=== PATIENT | male | born 1960 | race Caucasian/White ===

== ENCOUNTER → 2022-03-23 13:57 | Outpatient (BNVA) | payer MEDICARE, OTHER, SELFPAY | PROVIDERS: Visit Provider Internal Medicine | DX: I71.9 Aortic aneurysm of unspecified site, without rupture (principal); I10 Essential (primary) hypertension; R93.1 Abnormal findings on diagnostic imaging of heart and coronary circulation; Z87.891 Personal history of nicotine dependence | CPT/HCPCS: 99204 ==

== ENCOUNTER → 2022-05-07 08:31 | Outpatient (BNVA) | payer MEDICARE, SELFPAY | PROVIDERS: PCP Nurse Practitioner Family; Visit Provider Urology | DX: R79.89 Other specified abnormal findings of blood chemistry (principal); N52.9 Male erectile dysfunction, unspecified; I10 Essential (primary) hypertension | CPT/HCPCS: 81003; 99203 ==

== ENCOUNTER → 2022-09-21 13:07 | Outpatient (BNVA) | payer MEDICARE, SELFPAY | PROVIDERS: PCP Nurse Practitioner Family; Visit Provider Internal Medicine | DX: I71.9 Aortic aneurysm of unspecified site, without rupture (principal); I10 Essential (primary) hypertension; R93.1 Abnormal findings on diagnostic imaging of heart and coronary circulation; R06.00 Dyspnea, unspecified; Z87.891 Personal history of nicotine dependence | CPT/HCPCS: 99214 ==

== ENCOUNTER → 2022-10-07 10:43 | Outpatient (BNVA) | payer MEDICARE, SELFPAY | PROVIDERS: PCP Nurse Practitioner Family; Visit Provider Internal Medicine | DX: I10 Essential (primary) hypertension (principal) | CPT/HCPCS: 83880 ==

== ENCOUNTER → 2022-10-12 15:04 | Outpatient (BNVA) | payer MEDICARE, SELFPAY | PROVIDERS: PCP Family Medicine; Visit Provider Nurse Practitioner Family | DX: I10 Essential (primary) hypertension (principal); I87.2 Venous insufficiency (chronic) (peripheral); Z87.891 Personal history of nicotine dependence | CPT/HCPCS: 99214 ==

== ENCOUNTER 2022-10-15 10:25 | Outpatient (CLI) | payer MEDICARE, SELFPAY ==
--- NOTE | 2022-10-15 11:00 | CT_ITS ---
WS: [id number] CTA THORACIC TECHNIQUE: Contrast enhanced CTA of the thoracic aorta with coronal and sagittal reformatted images a nd maximum intensity projection (MIP) images. CLINICAL INFORMATION: ascending aortic aneurysm COMPARISON: None. DLP: 960.[address] scans at [facility] use at least one of these dose optimization techniques: automated e xposure control; mA and/or kV adjustment per patient size (includes targeted exams where dose is matc hed to clinical indication); or iterative reconstruction. FINDINGS: Lungs are well aerated. No acute pulmonary infiltrates. No focal pneumonia or pleural fluid. Noncalci fied hazy opacity RIGHT upper lobe measuring 9 mm. Noncalcified hazy opacity in the LEFT upper lobe m easuring 6 mm. Some images are degraded due to LEFT TSA. No mediastinal or hilar lymphadenopathy. Asc ending thoracic aorta measures 4.1 cm in maximum dimension. Normal caliber aortic arch and descending thoracic aorta. Adrenal glands are normal. Small esophageal hiatal hernia. Celiac and SMA are patent. Proximal main p ulmonary arteries are normal. Hypertrophic changes thoracic spine. CT/CT angio chest [id number] IMPRESSION: 1. Ascending thoracic aorta measures 4.1 cm. Normal caliber descending thoraci c aorta. 2. Lungs are well aerated. 3. Hazy opacity RIGHT upper lobe measuring 9 mm and LEFT inferior upper lobe a nteriorly measuring 6 mm. Recommend 12 month follow-up. 4. No other suspicious findings.
[2022-10-15] MEDS: iohexol 350 mg/mL 500 mL Btl (per mL) IV (11:28)
--- NOTE | 2022-10-15 13:15 | USCV_ITS ---
CHE DAVID Age: 61 Gender: M : 1960 Exam Date: 10/15/2022 12:08 Ordering Phys: Ventura Salazar M.D ([email or web address]) Technologist: Bashir [place] [facility] [place]: SOB BP: 142 / 90 HR: 66 Rhythm: Sinus Technical Quality: Adequate MEASUREMENTS (Male / Female) Normal Values 2D ECHO LVOT Diameter 2.0 cm LV Ejection Fraction MOD 2C 67.7 % LV Ejection Fraction 2C AL 66.0 % LA Diameter 3.2 cm LA Width 3.8 cm LA Height 4.5 cm RA Width 3.0 cm RA Height 4.8 cm Aorta at Sinotubular Diameter 3.1 cm IVC Diameter 1.8 cm M-MODE Aortic Annulus Diameter 3.4 cm LA Ao Ratio MM 0.9 DOPPLER AV Peak Velocity 149.3 cm/s LVOT Peak Velocity 141.0 cm/s AV Area Cont Eq vti 2.9 cm squared AV Area Cont Eq pk 3.0 cm squared MV Peak Velocity 75.0 cm/s MV Area PHT 4.9 cm squared Mitral E to A Ratio 0.8 MV E' Velocity 27.5 cm/s Mitral E to MV E' Ratio 7.5 Mitral E to LV E' Lateral Ratio 7.8 Mitral E to LV E' Septal Ratio 7.1 TR Peak Velocity 297.5 cm/s TR Peak Gradient 35.4 mmHg TR Mean Velocity 229.1 cm/s TR Mean Gradient 22.4 mmHg TR Velocity Time Integral 81.5 cm Right Atrial Pressure 3.0 mmHg Pulmonary Artery Systolic Pressu 38.4 mmHg PV Peak Velocity 91.3 cm/s RV Acceleration Time 0.1 s RV Ejection Time 0.3 s RV AcT/ET 0.4 FINDINGS Left Ventricle Left ventricle is normal in size. LV systolic function is normal with EF of 60 to 65%. No regional wall motion abnormalities are seen. Grade 1 diastolic dysfunction Right Ventricle Normal in size and function Right Atrium Normal in size Left Atrium Normal in size Mitral Valve Structurally normal mitral valve. Mild mitral regurgitation. Aortic Valve Structurally normal aortic valve. No significant stenosis. Trace aortic regurgitation. Tricuspid Valve Mild tricuspid regurgitation. RVSP is 35-40mmHg. This is consistent with mild pulmonary hypertension Pulmonic Valve Not well visualized. Trace pulmonic regurgitation. Pericardium Normal Aorta Normal in size IVC Appears to be normal CONCLUSIONS LV systolic function is normal with EF of 60-65% Grade 1 diastolic dysfunction Mild mitral regurgitation Trace aortic regurgitation Mild tricuspid regurgitation Mild pulmonary hypertension Trace pulmonic regurgitation No comparison studies are available Ventura Salazar MD (Electronically Signed) Final Date: 29 Oct 2022 10:24 S
== END 2022-10-15 10:26 | disposition home or self-care (01) ==
LOC: RAD 10:39
PROVIDERS: PCP Family Medicine; Visit Provider Internal Medicine
DX: I71.9 Aortic aneurysm of unspecified site, without rupture (principal); R06.02 Shortness of breath
CPT/HCPCS: 71275; 93306; Q9967

== ENCOUNTER 2022-10-16 11:24 | Outpatient (CLI) | payer MEDICARE, SELFPAY ==
--- NOTE | 2022-10-16 12:00 | USCV_ITS ---
TIFFANIEDAVID LEVINE Age: 61 Gender: M : 1960 Exam Date: 10/16/2022 11:53 Ordering Phys: Natividad Camacho Technologist: LILIA Exam Location: [facility] [place] Indication: HISTORY: PROCEDURES: Bilateral duplex Venous Insufficiency study of the Deep and Superficial systems was carried out according to normal protocol with the patient in supine positon for deep system and dependent position for the superficial system. FINDINGS: All deep veins demonstrated compressibility without evidence of intraluminal thrombus or increased echogenicity. Spectral analysis of Doppler signals demonstrates normal response to compression maneuvers indicating patency without obstruction. Vein measurements and reflux times are listed below were applicable. Significant Reflux at GSV Dist to SFJ, GSV MID, SSV Prox, SSV Mid CONCLUSIONS No evidence of DVT in the above-mentioned identifiable veins. Minimal venous reflux were noted of greater than 500 ms on the right side just distal to the saphenofemoral junction, proximal and mid small saphenous vein segments. The small saphenous vein segments wre found to be very superficial and lss than 1 cm from the surface. Just distal to the saphenofemoral junction, the venous segment was measuring 0.74 cm in diameter, at a depth of 1.21 cm from the surface. No similar previous studies are available for comparison Dr Jim Arana MD [facility] (Electronically Signed) Final Date: 17 October 2022 16:11 S
== END 2022-10-16 11:25 | disposition home or self-care (01) ==
LOC: RAD 11:32
PROVIDERS: PCP Family Medicine; Visit Provider Nurse Practitioner Family
DX: I87.2 Venous insufficiency (chronic) (peripheral) (principal)
CPT/HCPCS: 93970; 99214

== ENCOUNTER 2022-11-11 07:35 | Outpatient (CLI) | payer MEDICARE, SELFPAY ==
[2022-11-11 07:40] VITALS: BMI 40.9
--- NOTE | 2022-11-11 07:45 | NMCV_ITS ---
NM everardo perf SPECT r/s* [id number] Willie Blum Age: 61 Gender: M : 1960 Exam Date: 11/11/2022 08:39 Ordering Phys: Ventura Salazar M.D Technologist: KEVIN Manjarrez Exam Location: [facility] Indications: CHEST PAIN STRESS TEST Please see separate stress test report in [facility] for full findings IMAGE PROTOCOL Rest/Stress 1 Exercise Day Radiopharmaceutical Dose (mCi) Administration Site Administered by Rest: Tc-99m 10.6 IV KEVIN Reyes Sestamidante Stress:Tc-99m 33.0 IV KEVIN Reyes Sestamidante Rest: 11-Nov-2022 60 Discovery 630 Stress: 11-Nov-2022 15 Discovery 630 Radiopharmaceutical was injected at 85 % maximum heart rate. Images obtained in supine and prone position. SPECT RESULTS Technical Quality: Excellent Raw Data Analysis: Normal Image Corrections: No attenuation or motion correction applied Summed Stress Score: 1 Summed Rest Score: 5 Summed Difference Score: 1 PERFUSION FINDINGS SPECT images demonstrate homogeneous tracer distribution throughout the myocardium. FUNCTIONAL RESULTS (calculated via Gated SPECT) Stress Image LV EF (%): 70 Stress EDV (mL):118 TID: 0.87 Stress ESV (mL):35 FUNCTIONAL FINDINGS: There is normal left ventricular systolic function. IMPRESSIONS 1. Normal myocardial perfusion imaging with no evidence of ischemia. 2. LV systolic function is normal. Ventura Salazar MD (Electronically Signed) Final Date: 11 Nov 2022 17:52 S
--- NOTE | 2022-11-11 07:45 | ECG_ITS ---
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 Interpretive Statements NAME OF STUDY: EXERCISE SESTAMIBI STRESS TEST INDICATION: [Chest Pain] EXERCISE DATA: The patient was exercised by Severo protocol. Baseline heart rate was 72 beats per minute. Baseline blood pressure was 127/95 millimeters of mercury. Target heart rate was 136 beats per minute. Maximum heart rate achieved was 142 which was 104% of the target heart rate. Maximum blood pressure was 179/94 millimeters of mercury. Total exercise time was 9 minutes. Maximum METs achieved was 10.2 METS. The reason for ending the test was completion of protocol. The patient complained of shortness of breath during the stress test, which then resolved at the end of the test. ELECTROCARDIOGRAM: BASELINE: Showed sinus rhythm, normal axis, no significant ST-T changes at the baseline noted. [] EXERCISE: At the peak exercise level, [] No significant ST-T changes suggestive of ischemia noted. [] RECOVERY: During the recovery period, heart rate dropped appropriately. No significant ST-T changes in the recovery suggestive of ischemia noted. [] CONCLUSION: 1. Exercise capacity good 2. Heart rate response was appropriate. 3. Blood pressure response was appropriate. 4. Symptoms not suggestive of ischemia. 5. Electrocardiogram portion of the stress test was not suggestive of ischemia. 6. Nuclear scan will be documented separately. Electronically Signed On 12-03-2022 9:36:13 CDT by Ventura Salazar M.D. [email or web address]
[2022-11-11 10:01] VITALS: BP 143/99; PULSE 99
== END 2022-11-11 07:36 | disposition home or self-care (01) ==
PROVIDERS: PCP Family Medicine; Visit Provider Internal Medicine
DX: R07.9 Chest pain, unspecified (principal)
CPT/HCPCS: 36415; 78452; 93017; A9500

== ENCOUNTER → 2023-03-23 12:45 | Outpatient (BNVA) | payer MEDICARE, SELFPAY | PROVIDERS: PCP Family Medicine; Visit Provider Internal Medicine | DX: I10 Essential (primary) hypertension (principal); I71.9 Aortic aneurysm of unspecified site, without rupture; R93.1 Abnormal findings on diagnostic imaging of heart and coronary circulation; R06.09 Other forms of dyspnea; Z87.891 Personal history of nicotine dependence | CPT/HCPCS: 99214 ==

== ENCOUNTER → 2023-04-15 13:44 | Outpatient (BNVA) | payer MEDICARE, SELFPAY | PROVIDERS: PCP Family Medicine; Visit Provider Nurse Practitioner Family | DX: L82.1 Other seborrheic keratosis (principal); D22.5 Melanocytic nevi of trunk; L57.8 Other skin changes due to chronic exposure to nonionizing radiation; L81.4 Other melanin hyperpigmentation; L57.0 Actinic keratosis | CPT/HCPCS: 17000; 99203 ==

== ENCOUNTER → 2024-03-31 09:48 | Outpatient (BNVA) | payer MEDICARE, SELFPAY | PROVIDERS: PCP Family Medicine; Visit Provider Nurse Practitioner Family | DX: D48.5 Neoplasm of uncertain behavior of skin (principal); L82.1 Other seborrheic keratosis; D22.5 Melanocytic nevi of trunk; L81.4 Other melanin hyperpigmentation; L57.0 Actinic keratosis; L82.0 Inflamed seborrheic keratosis; L91.8 Other hypertrophic disorders of the skin; Z85.828 Personal history of other malignant neoplasm of skin | CPT/HCPCS: 11102; 17000; 17110; 99213 ==

== ENCOUNTER → 2024-05-22 13:00 | Outpatient (BNVA) | payer MEDICARE, SELFPAY | PROVIDERS: PCP Family Medicine; Visit Provider Dermatology | DX: Q82.5 Congenital non-neoplastic nevus (principal); D23.39 Other benign neoplasm of skin of other parts of face; L82.1 Other seborrheic keratosis; Z08 Encounter for follow-up examination after completed treatment for malignant neoplasm; Z85.820 Personal history of malignant melanoma of skin; D03.62 Melanoma in situ of left upper limb, including shoulder; D48.5 Neoplasm of uncertain behavior of skin | CPT/HCPCS: 11102; 11604; 12034; 99213 ==

== ENCOUNTER → 2024-06-05 10:59 | Outpatient (BNVA) | payer MEDICARE, SELFPAY | PROVIDERS: PCP Family Medicine; Visit Provider Dermatology | DX: L02.92 Furuncle, unspecified (principal) | CPT/HCPCS: 99213 ==

== ENCOUNTER → 2024-08-21 13:06 | Outpatient (BNVA) | payer MEDICARE, SELFPAY | PROVIDERS: PCP Family Medicine; Visit Provider Nurse Practitioner Family | DX: L57.8 Other skin changes due to chronic exposure to nonionizing radiation (principal); L81.4 Other melanin hyperpigmentation; D22.5 Melanocytic nevi of trunk; I99.8 Other disorder of circulatory system; Z85.828 Personal history of other malignant neoplasm of skin; Z08 Encounter for follow-up examination after completed treatment for malignant neoplasm; Z85.820 Personal history of malignant melanoma of skin; D48.5 Neoplasm of uncertain behavior of skin; L57.0 Actinic keratosis | CPT/HCPCS: 11102; 17000; 99213 ==

== ENCOUNTER → 2025-03-22 10:10 | Outpatient (BNVA) | payer MEDICARE, SELFPAY | PROVIDERS: PCP Family Medicine; Visit Provider Nurse Practitioner Family | DX: D22.62 Melanocytic nevi of left upper limb, including shoulder (principal); I99.8 Other disorder of circulatory system; L57.8 Other skin changes due to chronic exposure to nonionizing radiation; L81.4 Other melanin hyperpigmentation; D22.5 Melanocytic nevi of trunk; Z85.828 Personal history of other malignant neoplasm of skin; Z08 Encounter for follow-up examination after completed treatment for malignant neoplasm; Z85.820 Personal history of malignant melanoma of skin; L57.0 Actinic keratosis | CPT/HCPCS: 17000; 99213 ==

== ENCOUNTER → 2025-03-28 11:09 | Outpatient (BNVA) | payer MEDICARE, SELFPAY | PROVIDERS: PCP Family Medicine; Visit Provider Dermatology | DX: Z08 Encounter for follow-up examination after completed treatment for malignant neoplasm (principal); Z85.828 Personal history of other malignant neoplasm of skin; Z85.820 Personal history of malignant melanoma of skin; L81.4 Other melanin hyperpigmentation; D22.62 Melanocytic nevi of left upper limb, including shoulder; L57.0 Actinic keratosis | CPT/HCPCS: 11602; 12032; 17000; 99213 ==